=== PATIENT | female | born 1980 | race Caucasian/White ===

== ENCOUNTER 2023-11-21 13:50 | Emergency (ER) | payer OTHER, SELFPAY ==
[2023-11-21 13:52] VITALS: BP 130/81; PULSE 62; TEMP 36.7; O2SAT 100; BMI 24.9
--- NOTE | 2023-11-21 13:57 | PC.NURSE ---
great toe injury at work. pt ambulated to ER room without problem. slight swelling observed, no bruising.
--- NOTE | 2023-11-21 13:59 | ED_ITS ---
HPI HPI - Extremity Injury (Lower) General Chief Complaint: Extremity Injury, Lower Stated Complaint: RIGHT FOOT INJURY Time Seen by Provider: 11/21/23 13:52 Source: patient Mode of arrival: walk-in History of Present Illness HPI Narrative: Patient is a 43-year-old female who presents to the emergency department for an injury to the right toe that occurred at work. She works at a long[employer] and states that she smashed her toe on a Per lift 2 days ago. She states there has been drainage from under the toenail and she is concerned for infection. She has no concern for . No medications taken prior to arrival. Unknown last tetanus. Related Data Previous Rx's ?Medication ?Instructions ?Recorded cephalexin 500 mg capsule 500 mg PO Q8H 5 days #15 caps 11/21/23 ketorolac 10 mg tablet 10 mg PO TID PRN pain #10 tabs 11/21/23 Allergies Allergy/AdvReac Type Severity Reaction Status Date / Time No Known Drug Allergies Allergy Verified 11/21/23 13:55 Opioid HPI Opioid Management Most Recent Pain and Opioid Data: No Data to Display Review of Systems ROS Constitutional Denies: fever or chills Ears, nose, mouth, and throat Denies: throat pain or nasal congestion Respiratory Denies: shortness of breath Gastrointestinal Denies: nausea or vomiting Musculoskeletal Reports: extremity pain; Denies: back pain or neck pain Integumentary/Breast Denies: rash Neurological Denies: headache Hematologic/Lymphatic Denies: easy bruising or easy bleeding Exam Narrative Exam Narrative: Gen.: Awake, alert, in no distress Head: Normocephalic, atraumatic ENT: Moist mucous membranes Respiratory: No respiratory distress Extremities: Moves extremities equally, Right great toe with no subungual hematoma, mild loosening of the distal toenail although the cuticle is firmly in place proximally. No bleeding, deep lacerations or ecchymosis noted. Diffuse tenderness to palpation of the great toe. Psych: Normal mood and affect Neuro: No focal neuro deficit Skin: Warm, dry, intact Constitutional Vital Signs, click to edit/add: Last Vital Signs Temp 98.1 F 11/21/23 13:52 Pulse 62 11/21/23 13:52 Resp 16 11/21/23 13:52 BP 130/81 11/21/23 13:52 Pulse Ox 100 11/21/23 13:52 O2 Del Method Room Air 11/21/23 13:52 Course Vital Signs Vital signs: Vital Signs Temperature 98.1 F 11/21/23 13:52 Pulse Rate 62 11/21/23 13:52 Respiratory Rate 16 11/21/23 13:52 Blood Pressure 130/81 11/21/23 13:52 Pulse Oximetry 100 11/21/23 13:52 Oxygen Delivery Method Room Air 11/21/23 13:52 Temperature 98.1 F 11/21/23 13:52 Pulse Rate 62 11/21/23 13:52 Respiratory Rate 16 11/21/23 13:52 Blood Pressure 130/81 11/21/23 13:52 Pulse Oximetry 100 11/21/23 13:52 Oxygen Delivery Method Room Air 11/21/23 13:52 MDM - Extremity Injury (Lower) MDM Narrative Medical decision making narrative: X-rays of the great toe with no evidence of fracture or dislocation. No indication for repair of the toenail at this time, no subungual hematoma noted. Patient is concerned for infection. Bacitracin and dressing applied with postop shoe. She will be given NSAIDs for home. Tetanus updated in the ER as well. Follow-up with occupational health. Activity as tolerated for the right lower extremity. Rest, ice, elevate. Return to the ER if symptoms change or worsen. SUPERVISED APC VISIT, PHYSICIAN ATTESTATION: Based on the medical record the care appears appropriate. ? Medical Records Attestation: I reviewed the patient's medical records. Imaging Data XR toe: Attestation: I have reviewed the pertinent imaging results. Discharge Plan Discharge Stand Alone Forms: Portal Instructions Chief Complaint: Extremity Injury, Lower Clinical Impression: Contusion of toe of right foot Patient Disposition: Home, Self-Care Time of Disposition Decision: 14:49 Condition: Good Prescriptions / Home Meds: New ketorolac 10 mg tablet 10 mg PO TID PRN (Reason: pain) Qty: 10 0RF cephalexin 500 mg capsule 500 mg PO Q8H 5 Days Qty: 15 0RF Print Language: Austrian Instructions: Foot Contusion (ED) Referrals: [facility] [Outside] - As soon as possible
--- NOTE | 2023-11-21 14:10 | XR_ITS ---
[address] [id number] Patient Name: IRON THOMAS MRN: [id number] date: 1980 Sex: F Assigned Patient Location: ER Current Patient Location: ED.MAIN Accession/Order Number: [id number] Exam Date: 11/21/2023 14:05 Report Date: 11/21/2023 15:03 At the request of: ROSA POLK Procedure: XR toe RT min 2V EXAM: XR toe RT min 2V HISTORY: contusion COMPARISON: None. FINDINGS/IMPRESSION: 1. No acute fracture or dislocation. 2. No significant joint degeneration. 3. Normal alignment of the visualized joints of the foot. No significant joint degeneration. Electronically authenticated by: HUI BOYCE Date: 11/21/2023 15:03
[2023-11-21] MEDS: ADACEL DIPH,PERTUSS(ACELL),TET VAC/PF 0.5 ML ADULT SYRINGE IM (14:58)
[2023-11-21] MEDS: BACITRACIN 0.9 GM PACKET 1 PACKET TOPICAL (15:00)
--- NOTE | 2023-11-21 15:13 | PC.NURSE ---
bacitracin applied to toe nail and band aid applied.
== END 2023-11-21 15:13 | disposition home or self-care (01) ==
PROVIDERS: Emergency Provider Student in an Organized Health Care Education/Training Program; PCP Family Medicine
DX: S90.111A Contusion of right great toe without damage to nail, initial encounter (principal); W22.8XXA Striking against or struck by other objects, initial encounter; Z23 Encounter for immunization
CPT/HCPCS: 73660; 90471; 90715; 99284